=== PATIENT | male | born 1985 | race Caucasian/White ===

== ENCOUNTER 2019-12-13 13:04 | Emergency (ER) | payer OTHER ==
[~2019-12-13] VITALS: Ht 185.4 cm; Wt 97.1 kg
[~2019-12-13 13:04] MED LIST: DEXAMETHASONE4 MG PO; LORATADINE10 MG PO; PRILOSEC20 MG PO; ZOLOFT100 MG PO
--- OUTSIDE RECORDS SUMMARY | 2019-12-13 13:06 | XMS ---
PreManage Notification: ROSE SAMUEL Security [employer] Expert Events No recent Security Events currently on file CRITERIA MET - [facility] CARE PROVIDERS There are no care providers on record at this time. Anthony has no Care Guidelines for this patient. Mickey VISIT COUNT (12 MO.) 1 [facility] [place] TOTAL 1 NOTE: Visits indicate total known visits. ED/C VISIT TRACKING (12 MO.) 12/13/2019 13:04 HAZEL [facility] OR TYPE: Emergency COMPLAINT: - HAND INJURY INPATIENT VISIT TRACKING (12 MO.) No inpatient visits to display in this time frame [email or web address]
[2019-12-13] MEDS ORDERED: PROVIGIL100 MG PO (13:19)
== END 2019-12-13 15:00 | disposition home or self-care (01) ==
LOC: ED 13:04
DX: S61.412A Laceration without foreign body of left hand, initial encounter (principal); G47.30 Sleep apnea, unspecified; Z88.0 Allergy status to penicillin; Z88.8 Allergy status to other drugs, medicaments and biological substances; Z79.899 Other long term (current) drug therapy; W25.XXXA Contact with sharp glass, initial encounter
CPT/HCPCS: 12002; 90471; 90715; 99282-25